=== PATIENT | male | born 1935 | race Caucasian/White ===

== ENCOUNTER → 2021-01-10 | Outpatient (CLI) | payer MEDICARE, OTHER | LOC: HEART CORB 10:51 | DX: I25.10 Atherosclerotic heart disease of native coronary artery without angina pectoris (principal); I11.0 Hypertensive heart disease with heart failure; I50.33 Acute on chronic diastolic (congestive) heart failure; I48.21 Permanent atrial fibrillation; M54.9 Dorsalgia, unspecified; M47.819 Spondylosis without myelopathy or radiculopathy, site unspecified; E78.5 Hyperlipidemia, unspecified | CPT/HCPCS: 78452; A9502; J2785 ==